=== PATIENT | female | born 1950 | race Caucasian/White ===

== ENCOUNTER 2017-09-25 10:47 | Emergency (ER) | payer MEDICARE ==
[~2017-09-25] VITALS: Ht 165.1 cm; Wt 73.0 kg
[~2017-09-25 10:47] MED LIST: DICL75TA2 PO; DIVA250T6 PO; DOCU-131 PO; FAMO40TA4 PO; HYDR-3245 PO; MULT-257 PO; OXYC5CAP2 PO; PREG75CA PO; QUET50TA PO; RIVA10TA PO; SERT100T5 PO; SULF PO; TRAM-47 PO; TRIMETHOPRIM PO; [UNRECOGNIZED DRUG - REMARK]; will bring list
[2017-09-25] MEDS ORDERED: LORazepam 1MG TABLET ONE (13:12)
[2017-09-25] MEDS ORDERED: LORazepam 1MG TABLET PO ONE (13:30)
[2017-09-25 14:05] VITALS: BP 159/94
[2017-09-25] MEDS ORDERED: PHENYLEPHRINE NASAL 1%, 15ML SPRAY ONE (15:15)
[2017-09-25] MEDS ORDERED: PHENYLEPHRINE NASAL 1%, 30ML DROPS NAS ONE (15:30)
== END 2017-09-25 16:22 | disposition home or self-care (01) ==
LOC: ED 16:09
DX: H92.01 Otalgia, right ear (principal); J20.9 Acute bronchitis, unspecified
CPT/HCPCS: 70480; 71046; 99284

== ENCOUNTER 2018-04-11 17:17 | Emergency (ER) | payer MEDICARE, MEDICAID ==
[~2018-04-11] VITALS: Ht 165.1 cm; Wt 68.8 kg
[~2018-04-11 17:17] MED LIST changes: +DIVA-59 PO; -DIVA250T6 PO
[2018-04-11 17:26] VITALS: BP 156/95
== END 2018-04-11 18:04 | disposition home or self-care (01) ==
LOC: ED 17:45
DX: L03.211 Cellulitis of face (principal); K02.9 Dental caries, unspecified; F32.9 Major depressive disorder, single episode, unspecified; F17.200 Nicotine dependence, unspecified, uncomplicated
CPT/HCPCS: 99283

== ENCOUNTER 2018-09-11 13:12 | Emergency (ER) | payer MEDICAID, MEDICARE ==
[~2018-09-11] VITALS: Ht 165.1 cm; Wt 74.3 kg
[~2018-09-11 13:12] MED LIST changes: -DICL75TA2 PO; +DICL75TA3 PO; -RIVA10TA PO; +RIVA10TA2 PO; +SERT100T32 PO; -SERT100T5 PO
[2018-09-11 13:25] VITALS: BP 154/97
== END 2018-09-11 14:54 | disposition home or self-care (01) ==
LOC: ED 14:40
DX: J06.9 Acute upper respiratory infection, unspecified (principal); K08.89 Other specified disorders of teeth and supporting structures; F17.200 Nicotine dependence, unspecified, uncomplicated; F32.9 Major depressive disorder, single episode, unspecified
CPT/HCPCS: 71046; 99283

== ENCOUNTER 2018-10-21 20:13 | Emergency (ER) | payer MEDICARE ==
[~2018-10-21] VITALS: Ht 165.1 cm; Wt 71.1 kg
[2018-10-21 20:27] VITALS: BP 137/91
[2018-10-21] MEDS ORDERED: HYDROXYCUT PO (20:52)
[2018-10-21] MEDS ORDERED: ANTIBIOTIC PO (20:52)
[2018-10-21 21:03] LABS: BASOPHILS # (AUTO) 0.03 x10^3/uL (0-0.1); BASOPHILS % (AUTO) 1 % (0-1); EOSINOPHILS # (AUTO) 0.04 x10^3/uL (0-0.4); EOSINOPHILS % (AUTO) 1 % (1-7); LYMPHOCYTES # (AUTO) 1.48 x10^3/uL (1-3.4); LYMPHOCYTES % (AUTO) 26 % (22-44); MD NO; MEAN CORPUSCULAR HEMOGLOBIN 30.6 pg (27.0-34.8); MEAN CORPUSCULAR HGB CONC 33.7 g/dL (32.4-35.8); MEAN CORPUSCULAR VOLUME 90.8 fL (80-100); MEAN PLATELET VOLUME 7.9 fL (7.4-10.4); MONOCYTES # (AUTO) 0.68 x10^3/uL (0.2-0.8); MONOCYTES % (AUTO) 12 % (2-9); NEUTROPHILS # (AUTO) 3.46 x10^3/uL (1.8-6.8); NEUTROPHILS % (AUTO) 61 % (42-75); PLATELET COUNT 259 x10^3/uL (130-400); RED BLOOD COUNT 5.07 x10^6/uL (3.82-5.3); RED CELL DISTRIBUTION WIDTH 14.7 % (9.6-15.2)
[2018-10-21 21:14] LABS: INTERNATIONAL NORMALIZED RATIO 1.03 (0.93-1.1); PROTHROMBIN TIME 10.8 Seconds (9.6-11.5)
== END 2018-10-21 21:44 | disposition home or self-care (01) ==
LOC: ED 21:38
DX: H11.31 Conjunctival hemorrhage, right eye (principal)
CPT/HCPCS: 36415; 85025; 85610; 99283